=== PATIENT | male | born 1965 | race Caucasian/White ===

== ENCOUNTER 2016-09-10 07:19 | Emergency (ER) | payer BC ==
[~2016-09-10] VITALS: Ht 170.2 cm; Wt 84.5 kg
[2016-09-10 07:30] VITALS: Ht 170.2 cm; Wt 84.5 kg
[2016-09-10] MEDS ORDERED: SODIUM CHLORIDE 0.9% 1L BAG IV* STA (07:33)
[2016-09-10] MEDS ORDERED: CEFEPIME 2GM/50 ML (PMX) 50 ML IVPB STA (07:33)
--- NOTE | 2016-09-10 07:42 | ERA ---
ER Documentation Chief Complaint Date/Time DATE: 09/10/16 TIME: 07:38 Chief Complaint BIBA FOR CHILLS,LOWER BACK PAIN,CHEST DISCOMFORT HPI Patient is a 51-year-old male who presents with sudden onset, constant, moderate to severe rigors for the last 1 hour. The patient reports that he has chronic back pain, and had an epidural done 4 days ago. He has been in his normal state of health since that procedure and until today. He does report slightly increased back pain compared with prior. Patient reports single episode of vomiting. He reports feeling short of breath. He denies chest pain. He denies dysuria or flank pain. He denies abdominal pain or diarrhea. ROS All systems reviewed and are negative except as per history of present illness. Allergies Allergies: Coded Allergies: No Known Allergy (Unverified , 09/10/16) PMhx/Soc Past medical history: Hypertension, chronic back pain, low testosterone Past surgical history: Gastric bypass Social history: Denies tobacco or alcohol. FmHx Family History: No coronary disease, No diabetes Physical Exam Vitals Vital Signs Date Time Temp Pulse Resp B/P Pulse Ox O2 Delivery O2 Flow Rate FiO2 09/10/16 12:46 98.0 98 13 126/77 96 09/10/16 08:02 Nasal Cannula 2 09/10/16 07:30 100.1 122 20 146/85 95 Physical Exam Const: Alert, ill-appearing, lying in position Head: Atraumatic Eyes: Normal Conjunctiva, no pallor, no icterus ENT: Normal External Ears, Nose and Mouth. Mucous membranes moist Neck: Full range of motion. No meningismus. Resp: Clear to auscultation bilaterally, no wheezes, no rales Cardio: Regular rate and rhythm, no murmurs Abd: Soft, non tender, non distended. Normal bowel sounds Skin: No petechiae or rashes Back: Mild midline tenderness in mid lumbar region. Or flank tenderness Ext: No cyanosis, or edema Neur: Awake and alert, cranial nerves II through XII intact bilaterally, moves 4 extremities appropriately. Psych: Normal Mood and Affect Result Diagram: 09/10/16 0740 09/10/16 0740 Results 24 hrs Laboratory Tests Test 09/10/16 07:40 09/10/16 08:00 09/10/16 09:33 09/10/16 11:59 White Blood Count 4.710^3/ul Red Blood Count 6.2310^6/ul Hemoglobin 11.9g/dl Hematocrit 40.6% Mean Corpuscular Volume 65.2fl Mean Corpuscular Hemoglobin 19.1pg Mean Corpuscular Hemoglobin Concent 29.3g/dl Red Cell Distribution Width 20.2% Platelet Count 10449^3/UL Mean Platelet Volume 10.0fl Neutrophils % 70.4% Lymphocytes % 26.4% Monocytes % 2.6% Eosinophils % 0.2% Basophils % 0.2% Nucleated Red Blood Cells % 0.0/100WBC Neutrophils # 3.310^3/ul Lymphocytes # 1.210^3/ul Monocytes # 0.110^3/ul Eosinophils # 0.010^3/ul Basophils # 0.010^3/ul Nucleated Red Blood Cells # 0.010^3/ul Prothrombin Time 13.3Sec Prothrombin Time Ratio 1.0 INR International Normalized Ratio 1.01 Activated Partial Thromboplast Time 24.1Sec Sodium Level 141mmol/L Potassium Level 3.9mmol/L Chloride Level 100mmol/L Carbon Dioxide Level 25mmol/L Anion Gap 20 Blood Urea Nitrogen 17mg/dl Creatinine 0.93mg/dl Glucose Level 120mg/dl Lactic Acid Level 6.4mmol/L 1.4mmol/L 1.1mmol/L Calcium Level 9.2mg/dl Total Bilirubin 0.5mg/dl Direct Bilirubin 0.00mg/dl Indirect Bilirubin 0.5mg/dl Aspartate Amino Transf (AST/SGOT) 29IU/L Alanine Aminotransferase (ALT/SGPT) 17IU/L Alkaline Phosphatase 83IU/L Troponin I < 0.012ng/ml Total Protein 7.0g/dl Albumin 4.2g/dl Globulin 2.80g/dl Albumin/Globulin Ratio 1.50 Urine Color LT. YELLOW Urine Clarity CLEAR Urine pH 5.5 Urine Specific [place] 1.025 Urine Ketones NEGATIVE Urine Nitrite NEGATIVE Urine Bilirubin NEGATIVE Urine Urobilinogen 0.2 E.U./dL Urine Leukocyte Esterase NEGATIVE Urine Hemoglobin NEGATIVE Urine Glucose NEGATIVE% Urine Total Protein NEGATIVE Current Medications Medications (Trade) Dose Ordered Sig/Nitish Route PRN Reason Start Time Stop Time Status Last Admin Dose Admin Sodium Chloride 2620 ml 2,620 ml BOLUS OVER 2 HOURS STAT IV* 09/10/16 07:33 09/10/16 07:35 DC 09/10/16 08:01 Cefepime HCl (Maxipime 2gm/50 ml (Pmx)) 50 ml @ 100 mls/hr ONCE STAT IVPB 09/10/16 07:33 09/10/16 08:02 DC 09/10/16 08:01 Morphine Sulfate (morphine) 4 mg ONCE STAT IV 09/10/16 09:12 09/10/16 09:13 DC 09/10/16 09:20 Procedures/MDM EKG read by me: Time 749, rate 125 Rhythm: Sinus tachycardia [place]: Right axis deviation Intervals: Normal ST-T waves: no ischemic changes Ectopy: No Q-waves: No Impression: Sinus tachycardia with rightward axis and no ischemic changes IMPRESSION: 1. Bilateral lower lobe consolidations more conspicuous at the left base and rule out pneumonia. 2. Prominent pulmonary vessels is probably related to technique. 3. Elevated right hemidiaphragm. MDM: Patient is a 51-year-old male who presents with sudden onset of rigors with fever, associated with shortness of breath. Chest x-ray demonstrates bilateral consolidations suggestive of pneumonia. Temperature is 100.7F. Initial O2 sat 90% on room air. Lactic acid is 6, suggestive of severe sepsis. Blood cultures, urine cultures, respiratory cultures were sent. The patient was given a 30 cc/kg bolus of normal saline, and broad-spectrum IV antibiotics. Repeat lactic acid levels were normalized, and on reassessment the patient is satting 98% on room air, has improved heart rate, normal respiratory rate and blood pressure, and feels much better. Advised patient of need for admission for treatment of pneumonia with sepsis, but the patient refused admission due to concerns about insurance coverage. The patient signed out AGAINST MEDICAL ADVICE. He states that he plans to go directly to his regular hospital, [facility]. We had attempted to arrange a hospital to hospital lateral transfer to this hospital, but they did not have beds available. I offered the patient a prescription for levofloxacin in case she is not able to be admitted at [facility], but the patient refused. The patient states that he has practices a physician in [place] and understands the seriousness of his condition and need for hospitalization. Departure Diagnosis: Primary Impression: Severe sepsis Additional Impression: Pneumonia Qualified Code: J18.9 - Pneumonia of both lower lobes due to infectious organism Condition: DEB Khanna MD Sep 10, 2016 07:42
[2016-09-10 08:06] LABS: ADD SCAN DIFF NO
[2016-09-10 08:07] LABS: ABNORMAL IP MESSAGE 1; BASOPHILS % 0.2 % (0.0-2.0); EOSINOPHILS % 0.2 % (0.0-7.0); HEMATOCRIT 40.6 % (42.0-52.0); HEMOGLOBIN 11.9 g/dl (14.0-18.0); LYMPHOCYTES # 1.2 10^3/ul (0.8-2.9); LYMPHOCYTES % 26.4 % (15.0-51.0); MEAN CORPUSCULAR HEMOGLOBIN 19.1 pg (29.0-33.0); MEAN CORPUSCULAR HGB CONC 29.3 g/dl (32.0-37.0); MEAN CORPUSCULAR VOLUME 65.2 fl (82.0-101.0); MONOCYTE # 0.1 10^3/ul (0.3-0.9); MONOCYTES % 2.6 % (0.0-11.0); NEUTROPHIL # 3.3 10^3/ul (1.6-7.5); NEUTROPHILS % 70.4 % (39.0-77.0); PLATELET COUNT 228 10^3/UL (140-415); RED BLOOD COUNT 6.23 10^6/ul (4.70-6.10); RED CELL DISTRIBUTION WIDTH 20.2 % (11.5-14.5); WHITE BLOOD COUNT 4.7 10^3/ul (4.8-10.8)
[2016-09-10 08:19] LABS: INR 1.01; PROTIME 13.3 Sec (12.2-14.2)
[2016-09-10 08:20] LABS: PARTIAL THROMBOPLASTIN TIME 24.1 Sec (25.0-35.0)
[2016-09-10 08:22] LABS: ALBUMIN 4.2 g/dl (3.3-4.9); CHLORIDE 100 mmol/L (97-110); POTASSIUM 3.9 mmol/L (3.5-5.1); SODIUM 141 mmol/L (135-144)
[2016-09-10 08:25] LABS: ALANINE AMINOTRANSFERASE 17 IU/L (13-69); ALKALINE PHOSPHATASE 83 IU/L (42-121); ANION GAP 20 (8-16); ASPARTATE AMINO TRANSFERASE 29 IU/L (15-46); BILIRUBIN,INDIRECT 0.5 mg/dl (0-1.1); BILIRUBIN,TOTAL 0.5 mg/dl (0.2-1.3); BLOOD UREA NITROGEN 17 mg/dl (7-20); CALCIUM 9.2 mg/dl (8.4-10.2); CARBON DIOXIDE 25 mmol/L (21-31); CREATININE 0.93 mg/dl (0.61-1.24); GLUCOSE 120 mg/dl (70-220)
--- NOTE | 2016-09-10 08:27 | RADRPT ---
PROCEDURE: XR Chest. CLINICAL INDICATION: Possible Sepsis TECHNIQUE: AP portable chest COMPARISON: None. FINDINGS: the patient is rotated to the left and told of the right. The right hemidiaphragm is elevated. Th e heart is probably normal limits in size allowing for technique. There is bilateral perihilar and lower lobe consolidations much more apparent at the left base and rule out pneumonia. A note the pu lmonary vessels appear prominent however this may all be related to technique. Follow-up is suggest ed. No gross pleural effusions. No evidence of pneumothorax. IMPRESSION: 1. Bilateral lower lobe consolidations more conspicuous at the left base and rule out pneumonia. 2. Prominent pulmonary vessels is probably related to technique. 3. Elevated right hemidiaphragm. RPTAT:AAJJ Physician Marianela Date Time Electronically viewed and signed by Xavi Croft Physician on 09/10/2016 08:27 /
[2016-09-10 08:33] LABS: ADD UMIC NO; URINE BILIRUBIN (Dip) NEGATIVE (NEGATIVE); URINE BLOOD (Dip) NEGATIVE (NEGATIVE); URINE COLOR LT. YELLOW (YELLOW); URINE GLUCOSE (Dip) NEGATIVE (NEGATIVE); URINE KETONES (Dip) NEGATIVE (NEGATIVE); URINE LEUKOCYTE ESTERASE (Dip) NEGATIVE (NEGATIVE); URINE NITRITE (Dip) NEGATIVE (NEGATIVE); URINE TOTAL PROTEIN (Dip) NEGATIVE (NEGATIVE); URINE UROBILINOGEN (Dip) 0.2 E.U./dL (0.1-1.0)
[2016-09-10 08:55] LABS: TROPONIN-I < 0.012 ng/ml (0.00-0.12)
[2016-09-10] MEDS ORDERED: morphine 4 MG/ML VIAL IV STA (09:12)
[2016-09-10 12:46] VITALS: BP 126/77; PULSE 98; RESP 13; TEMP 98
[2016-09-10] MEDS ORDERED: ATEN50TA PO (13:47)
== END 2016-09-10 13:35 | disposition left against medical advice (07) ==
LOC: E/R 07:19
DX: A41.9 Sepsis, unspecified organism (principal); R65.20 Severe sepsis without septic shock; J18.9 Pneumonia, unspecified organism; I10 Essential (primary) hypertension
CPT/HCPCS: 36415; 71010; 80053; 81003; 83605; 84484; 85025; 85610; 85730; 87040; 87086; 93005; 96374; 96375; 99285; J0692; J2270; J7030